=== PATIENT | female | born 1985 | race Caucasian/White ===

== ENCOUNTER → 2020-04-20 | Outpatient (CLI) | payer BC ==
--- NOTE | 2020-04-20 14:56 | Diagnostic Imaging Report ---
EXAM: Lumbar spine 2 or 3 views. INDICATION: Low back pain. COMPARISON: None. FINDINGS: There are five lumbar-type vertebral bodies. Normal alignment. Vertebral body heights are preserved. No fractures. Mild degenerative endplate changes and facet arthropathy at L5-S1. The visualized pelvis is intact. Surgical clips in the pelvis. IMPRESSION: Mild spondylotic changes at L5-S1. No acute radiographic findings. Dictated by: Dictated on workstation # [id number]
== END ==
LOC: RAD FS 14:13
PROVIDERS: ATTEND Nurse Practitioner Family
DX: M47.817 Spondylosis without myelopathy or radiculopathy, lumbosacral region (principal)
CPT/HCPCS: 72100

== ENCOUNTER → 2021-01-18 | Outpatient (CLI) | payer BC ==
--- NOTE | 2021-01-18 16:54 | Diagnostic Imaging Report ---
PROCEDURE: MRI lumbar spine. TECHNIQUE: Multiplanar, multisequence MRI of the lumbar spine was performed without contrast. INDICATION: Low back pain COMPARISON: Radiographs from 04/20/2020 FINDINGS: The last well-formed disc space will labeled L5-S1 for the purposes of this examination. Alignment appears normal with no spondylolisthesis. There is moderate disc height loss at L5-S1 and mild disc height loss at L4-L5. There is decreased T2 signal at those levels as well. Vertebral body heights are preserved. No acute fracture is seen. There is mild fluid in the L4-L5 facets bilaterally, could represent a mild active arthropathy. The conus terminates in appropriate position. Soft tissues about the lumbar spine demonstrate no acute abnormality. T12-L1: No significant disc bulge. No spinal canal or foraminal stenosis. L1-L2: No significant disc bulge. No spinal canal or foraminal stenosis. L2-L3: No significant disc bulge. No spinal canal or foraminal stenosis. L3-L4: No significant disc bulge. No spinal canal or foraminal stenosis. L4-L5: Diffuse disc bulge. Posterior annular fissure. No spinal canal stenosis. No foraminal stenosis. L5-S1: Disc bulge with small left paracentral disc protrusion. No spinal canal or foraminal stenosis. IMPRESSION: 1. Degenerative disc disease at L4-L5 and L5-S1. No spinal canal or foraminal stenosis. Dictated by: Dictated on workstation # [id number]
== END ==
LOC: RAD 15:55
PROVIDERS: ATTEND Nurse Practitioner Family
DX: M51.26 Other intervertebral disc displacement, lumbar region (principal); M51.27 Other intervertebral disc displacement, lumbosacral region
CPT/HCPCS: 72148